=== PATIENT | male | born 1995 | race Caucasian/White ===

== ENCOUNTER → 2016-06-06 | Outpatient (CLI) | payer OTHER ==
[~2016-06-06] MED LIST: LISD70CA PO; RISP1TAB68 PO
[2016-06-06 10:59] LABS: CHOLESTEROL/HDL RATIO 2.5
== END | disposition home or self-care (01) ==
LOC: C.LAB 08:57
PROVIDERS: ATTEND Nurse Practitioner Psychiatric/Mental Health
DX: F90.2 Attention-deficit hyperactivity disorder, combined type (principal); F34.9 Persistent mood [affective] disorder, unspecified; Z51.81 Encounter for therapeutic drug level monitoring; Z79.899 Other long term (current) drug therapy

== ENCOUNTER 2017-06-01 14:35 | Inpatient (IN) | payer OTHER ==
[~2017-06-01] VITALS: Ht 167.6 cm; Wt 67.0 kg
[2017-06-01] MEDS ORDERED: GUAN1TAB26 PO (15:14)
[2017-06-01 15:44] LABS: HEMATOCRIT 46.2 % (42-52); HEMOGLOBIN 15.7 g/dL (14.0-18.0); MEAN CELL VOLUME 83.8 fL (80-100); MEAN CORPUSCULAR HEMOGLOBIN 28.5 pg (25-34); MEAN PLATELET VOLUME 10.1 fL (7.4-10.4); PLATELET COUNT 223 K/uL (130-400); RED CELL DISTRIBUTION WIDTH SD 39.2 fL (36.4-46.3); WHITE BLOOD COUNT 8.56 K/uL (4.8-10.8)
[2017-06-01 16:03] LABS: ALBUMIN 4.7 gm/dl (3.4-5.0); ALT/SGPT 24 U/L (12-78); BLOOD UREA NITROGEN 13 mg/dl (7-18); CALCIUM 9.7 mg/dl (8.5-10.1); CARBON DIOXIDE 26 mmol/L (21-32); CREATININE 0.95 mg/dl (0.60-1.40); GLUCOSE 95 mg/dl (70-99); POTASSIUM 3.7 mmol/L (3.5-5.1); SODIUM 137 mmol/L (136-145)
[2017-06-01 16:14] LABS: ALKALINE PHOSPHATASE 60 U/L (45-117); AST/SGOT 19 U/L (15-37); TOTAL PROTEIN 8.6 gm/dl (6.4-8.2)
[2017-06-01] MEDS ORDERED: hydrOXYzine HCL 25 MG TAB PO PRN ×2 (17:30)
[2017-06-01] MEDS ORDERED: ALUMINUM/MAGNESIUM SUSP 30 ML UDC PO PRN (17:30)
[2017-06-01] MEDS ORDERED: SODIUM CHLORIDE 0.65% NA SOLN 45 ML (OCEAN) PRN (17:30)
[2017-06-01] MEDS ORDERED: MAGNESIUM HYDROXIDE SUSP 30 ML UDC PO PRN (17:30)
[2017-06-01] MEDS ORDERED: ACETAMINOPHEN 325 MG TAB PO PRN (17:30)
[2017-06-01] MEDS ORDERED: BISMUTH SUBSALICYLATE PER ML OMNICELL CHARGE PO PRN (17:30)
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
[2017-06-01] MEDS ORDERED: IBUPROFEN 600 MG TAB PO STA (18:04)
[2017-06-01 19:00] VITALS: O2SAT 100
[2017-06-01 19:38] VITALS: BP 150/90; PULSE 74; TEMP 36.6; Ht 167.6 cm; Wt 67.0 kg
[2017-06-01] MEDS: RISPERIDONE 1 MG TAB PO SCH (21:42)
[2017-06-02 06:51] VITALS: BP_SYST 126; BP_SYST 139; BP_DIAS 70; BP_DIAS 75; PULSE 47; PULSE 94; TEMP 36.4
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
[2017-06-02] MEDS ORDERED: HYDROCORTISONE 1% OINT 30 GM TUBE EXT SCH (11:30)
[2017-06-02] MEDS ORDERED: HYDROCORTISONE 1% OINT 30 GM TUBE EXT ONE (11:45)
[2017-06-02] MEDS: RISPERIDONE 1 MG TAB PO SCH (21:20)
[2017-06-03 06:47] VITALS: BP_SYST 137; BP_SYST 140; BP_DIAS 82; BP_DIAS 83; PULSE 51; PULSE 91; TEMP 36.8
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
--- NOTE | 2017-06-03 15:05 | Psychiatric Progress Notes ---
Progress Note Date of Service Jun 03, 2017. Interval History Brandon Olivares is a 21-year-old male patient of Dr. Daly who has a history of ADHD and unspecified mood disorder who was admitted voluntarily on Jun 01, 2017 at 17:29 after he was brought in by police for suicidality, having threatened his mother with a knife and threatened to cut himself. There is a backup 302 petition. Pt informed of arrest warrant following discharge due to indecent assault. Chief Complaint "I'm feeling a little better now". Subjective Patient was seen & assessed interval progress reviewed with Nursing who passed on suggestion of active CYS reports for multiple incidents. Was reported that patient's mother is unwilling for him to return home after discharge due to safety concerns related to her grandchildren whom she cares for within her home. Arrest warrant was faxed stating patient has active charges for indecent assault requiring him to enter police custody upon discharge. Pt was seen multiple times today as this provider was present when patient received news of the arrest warrant. Pt was seen along with his case advocate, Desiree, and social sciences chair, Jackelyn. Pt's voiced anger upon receiving the news, but was not matched in regard to body language as patient continued to smile and laugh during the conversation. He states he typically bottles up his emotions. During the discussion, the patient was easily distracted by things like his clothing or "junk on my hands". He was able to suppress reported urges to "punch something" and was provided with multiple resources for managing his anger while on the unit to include walking laps, riding the exercise bike, activities, and speaking with staff to help process his feelings. Pt reported to group therapy upon dismissal from the social work office and has been showing decent management of his emotions as the day goes on. Pt was seen later in the afternoon to assess progress since admission and medication changes. He reports he has been taking Risperdal "since I was like 5 " and feels that it has been helpful for him. He is also prescribed medication for ADHD which he states his grandmother will be bringing in when she is able - he is unsure when that will be. Pt states he has been feeling better since news of his warrant this morning and has been distracting himself by watching TV. He denies SI at this time and is agreeable to hold on medication changes until we are able to gain collateral information from his outpatient providers. He states he had difficulty sleeping last evening due to his bed not being comfortable. Appetite remains minimal and he states he has minimal intake throughout the day at baseline. He ate part of breakfast and has kept some food available for him as he gets hungry throughout the day. Review of Systems Psych: denies symptoms other than stated above Constitutional: denied Cardiovascular: denied GI: denied Neurologic: denied Remainder of 10 body systems also reviewed and denied other than noted above. Sleep Information Total Hours of Sleep: 6.75 Meal Information Percent of Breakfast Consumed: 75 Percent of Lunch Consumed: 0 Percent of Dinner Consumed: 100 Mental Status Exam During interview pt is: alert and oriented, cooperative, guarded Appearance: appropriately dressed, disheveled, other (malodorous) Eye contact is: fair Motor behavior is: steady gait & station, no abnormal motor movements Speech: normal in rate, rhythm & volume Affect: blunted Mood is: other ("ok") Thought process: goal directed, concrete Thought content: reality based without delusions Suicidal thought are: denied (threats to cut himself and his mother which lead to admission) Homicidal thoughts are: denied (threats to cut mother leading to admission) Hallucinations: denies auditory, denies visual Cognition: other (appears to be impaired) Intelligence estimated to be: below average Insight: poor Judgement: poor Impression Pt reports anger today due to finding out about arrest warrant. He is able to distract himself to manage his emotions at this time. Collateral information from outpatient providers would be beneficial prior to making medication changes. Pt is known to Dr. Daly who followed him as an outpatient. Due to patient's stability and denial of mood symptoms on the unit, medications have remained unchanged until patient can be further assessed by Dr. Daly or collateral information can be obtained. Pt will need family meeting due to change in disposition and help with discharge planning. [facility] to talk with him and is willing to assist with discharge planning as she is able. Other psychosocial stressors will likely need to be addressed to include recently quitting job and medication and therapy compliance. Plan (1) Suicide gesture - Suicide checks for safety. Encourage the patient to process the stressors that led to his suicide attempt, and schedule a family meeting. Coordinate care with his outpatient providers, and explore poor compliance with outpatient treatment. Encourage group attendance and participation. Work on healthy coping skills and discharge safety plan. Will recommend guns and knives be secured and that he not have access until more stable. - Patient indicated he struggles with appropriate boundaries with females, has multiple GFs, and per police is being investigated for sexual assault. He indicates understanding of the unit rules. (2) Mood disorder 06/02 - Diagnosed with mood disorder NOS. Denying mood symptoms today, but not necessarily a reliable historian, and we will need to get collateral information from family. Coordinate care with Dr. Daly/JEANIE Hodges and other OP providers. He indicates he's been noncompliant with case management and therapy, and we will need to look into this. Continue home dose of risperidone 1mg daily for now. Fasting labs reviewed from 06/06/16, FLP and FG were normal. Is due for annual labs so will order for tomorrow. 06/03 - Continue home medications - Risperdal 1mg daily. Grandmother has been unable to supply home ADHD medication. - Fasting labs this morning are within normal limits, fast glucose of 94 and normal fasting lipid panel. - Continue to encourage participation in group activities and therapy. Allow for individual counseling if required to help process arrest warrant and stressors causing him to act out in these situations. (3) ADHD Guanfacine ER is nonformulary, so family will need to bring his medication in. 06/03 - Reported grandmother has not supplied medication. (4) h/o mrsa 06/02 - [facility]PR for h/o MRSA +, check nasal swab, coordinate with infection control. 06/03 - Reported negative MRSA nasal swab, suggested retest in 1 week if patient remains on the unit. (5) Rash Denies insect bite, injury, itchiness, but bothered by dryness. Hydrocortisone ointment bid, monitor Discharge / Aftercare Planning Therapist: Name: None Evaporator: Name: Desiree Gallardo , email: [email or web address] Visit Code E&M Code: 70178 Inventory Assets Strengths: Supportive family, has OP psychiatrist Needs: Education about illness, coping skills Risk Factors Assessment Male: Yes : Yes /single/: Yes Higher / Fall in social status: No Health problems: No Mental Health Diagnoses: Yes Substance use disorders: No Previous attempt: Yes Previous psychiatric stay: No Hopelessness: No Smoker: No Protective Factors Assessment Scientologist beliefs: No : No Responsible for young children: No Employed: No Stable relationships: No Supportive family: Yes Data Vital Signs Last 24 Hrs: Date Time Temp Pulse Resp B/P (MAP) Pulse Ox O2 Delivery O2 Flow Rate FiO2 06/03/17 06:47 36.8 51 20 137/83 91 140/82 Meds Administered Last 24 Hrs: Meds Administered (Past 24Hrs) Medications (Trade) Dose Ordered Sig/Yobani Route Start Time Stop Time Status Last Admin Dose Admin Risperidone (Risperdal Tab) 1 mg HS PO 06/01/17 21:00 07/01/17 20:59 06/02/17 21:20 1 MG Ibuprofen (Motrin Tab) 600 mg NOW STAT PO 06/01/17 18:04 06/01/17 18:05 DC 06/01/17 18:08 600 MG Hydrocortisone (Hydrocortisone 1% Oint) 1 appln 1145 ONCE EXT 06/02/17 11:45 06/02/17 11:46 DC 06/02/17 12:02 1 APPLN Lab Results Last 24 Hrs: Last 24 Hours Test 06/03/17 07:54 Fasting Glucose 94 mg/dl Triglycerides Level 46 mg/dl Cholesterol Level 158 mg/dl HDL Cholesterol 57 mg/dl LDL Cholesterol, Calculated 92 mg/dl VLDL Cholesterol, Calculated 9 mg/dl Cholesterol/HDL Ratio 2.8 Problem Qualifiers (1) Suicide gesture: Encounter type: initial encounter Qualified Codes: X83.8XXA - Intentional self-harm by other specified means, initial encounter
[2017-06-03] MEDS: RISPERIDONE 1 MG TAB PO SCH (21:14)
[2017-06-03] MEDS: GUANFACINE PO SCH (21:15)
[2017-06-04 06:46] VITALS: BP_SYST 115; BP_SYST 129; BP_DIAS 66; BP_DIAS 90; PULSE 50; PULSE 96; TEMP 36.5
--- NOTE | 2017-06-04 13:33 | Psychiatric Progress Notes ---
Progress Note Date of Service Jun 04, 2017. Interval History Brandon Olivares is a 21-year-old male patient of Dr. Daly who has a history of ADHD and unspecified mood disorder who was admitted voluntarily on Jun 01, 2017 at 17:29 after he was brought in by police for suicidality, having threatened his mother with a knife and threatened to cut himself. There is a backup 302 petition. Pt informed of arrest warrant following discharge due to indecent assault. Chief Complaint "I'm ok". Subjective Patient was seen & assessed interval progress reviewed with Treatment Team. Staff reports patient is receiving charges for indecent assault, but police are "working on other charges". Length of stay determined to be 2-3 days and police and patient's case reviewer will be notified of likely discharge on Wednesday. Pt was seen today to assess progress since admission. Pt states He is doing well and has been thinking about the charges against him. He feels that the proceedings will go well. We discussed taking time during this hospitalization to plan for each potential outcome. Discussed thoughts and actions he expects from himself in things go better, worse, or the same as expected. Pt plans to continue to consider this during the remainder of his stay. He also reports he had a chance to talk with a staff member last evening about his alcohol use and states he feels that this admission will be useful to encourage him not to go back to alcohol use once he is released. Pt requests that someone call his case reviewer about his discharge and it was suggested that he take the opportunity to reach out to her as this would be an important part of being compliant with communication after discharge. Pt reports "trouble " sleeping last evening as it took longer than usual for him to get tired. He denies SI/HI, A/V hallucinations, and other psychosis. Review of Systems Psych: denies symptoms other than stated above Constitutional: denied Cardiovascular: denied GI: denied Neurologic: denied Remainder of 10 body systems also reviewed and denied other than noted above. Sleep Information Total Hours of Sleep: 6.00 Meal Information Percent of Breakfast Consumed: 80 Percent of Lunch Consumed: 0 Percent of Dinner Consumed: 100 Mental Status Exam During interview pt is: alert and oriented, cooperative Appearance: appropriately dressed, disheveled Eye contact is: good Motor behavior is: steady gait & station, no abnormal motor movements Speech: normal in rate, rhythm & volume Affect: euthymic Mood is: other ("good") Thought process: goal directed, concrete Thought content: reality based without delusions Suicidal thought are: denied (previous threats to cut himself) Homicidal thoughts are: denied (threats to cut mother previously) Hallucinations: denies auditory, denies visual Cognition: other (appears to be impaired, unsure of actual IQ level with testing) Intelligence estimated to be: below average Insight: poor Judgement: poor Impression Pt continue to process news of arrest warrant and is beginning to consider possible outcomes from his hearing. He was encouraged to spend some time considering his feelings toward potentially outcomes that may be better than he expects or worse than he expects. He is also planning to discontinue alcohol use upon discharge as he has had time to reflect on its effect thus far on his life choices. Pt was able to receive his ADHD medications from his grandmother as they are non-formulary. He feels better now that he is on both the guanfacine and risperidone. No medication changes necessary at this time as patient feels he is doing better. Will continue to monitor. Plan (1) Suicide gesture - Suicide checks for safety. Encourage the patient to process the stressors that led to his suicide attempt, and schedule a family meeting. Coordinate care with his outpatient providers, and explore poor compliance with outpatient treatment. Encourage group attendance and participation. Work on healthy coping skills and discharge safety plan. Will recommend guns and knives be secured and that he not have access until more stable. - Patient indicated he struggles with appropriate boundaries with females, has multiple GFs, and per police is being investigated for sexual assault. He indicates understanding of the unit rules. (2) Mood disorder 06/02 - Diagnosed with mood disorder NOS. Denying mood symptoms today, but not necessarily a reliable historian, and we will need to get collateral information from family. Coordinate care with Dr. Daly/JEANIE Hodges and other OP providers. He indicates he's been noncompliant with case management and therapy, and we will need to look into this. Continue home dose of risperidone 1mg daily for now. Fasting labs reviewed from 06/06/16, FLP and FG were normal. Is due for annual labs so will order for tomorrow. 06/03 - Continue home medications - Risperdal 1mg daily. Grandmother has been unable to supply home ADHD medication. - Fasting labs this morning are within normal limits, fast glucose of 94 and normal fasting lipid panel. - Continue to encourage participation in group activities and therapy. Allow for individual counseling if required to help process arrest warrant and stressors causing him to act out in these situations. 06/04 - Continue Risperdal 1mg daily and guanfacine home dosing as brought in by grandmother. Improving with re-start of both medications. - Continue to encourage group participation. Was encouraged to spend some time processing potential outcomes of his court hearing to allow him to be prepared for results better/worse than expected. - Will continue to discuss recent desire to abstain from alcohol after discharge as he would greatly benefit from this decision. (3) ADHD Guanfacine ER is nonformulary, so family will need to bring his medication in. 06/03 - Reported grandmother has not supplied medication. (4) h/o mrsa 06/02 - MNPR for h/o MRSA +, check nasal swab, coordinate with infection control. 06/03 - Reported negative MRSA nasal swab, suggested retest in 1 week if patient remains on the unit. (5) Rash Denies insect bite, injury, itchiness, but bothered by dryness. Hydrocortisone ointment bid, monitor Discharge / Aftercare Planning Psychiatrist: Name: [facility] Therapist: Name: Amanda Inside Sales Associate: Name: Desiree Gallardo , email: [email or web address] Visit Code E&M Code: 88273 Inventory Assets Strengths: Supportive family, has OP psychiatrist Needs: Education about illness, coping skills Risk Factors Assessment Male: Yes : Yes /single/: Yes Higher / Fall in social status: No Health problems: No Mental Health Diagnoses: Yes Substance use disorders: No Previous attempt: Yes Previous psychiatric stay: No Hopelessness: No Smoker: No Protective Factors Assessment Quaker beliefs: No : No Responsible for young children: No Employed: No Stable relationships: No Supportive family: Yes Data Vital Signs Last 24 Hrs: Date Time Temp Pulse Resp B/P (MAP) Pulse Ox O2 Delivery O2 Flow Rate FiO2 06/04/17 06:46 36.5 50 16 115/66 96 129/90 Meds Administered Last 24 Hrs: Meds Administered (Past 24Hrs) Medications (Trade) Dose Ordered Sig/Yobani Route Start Time Stop Time Status Last Admin Dose Admin Non-Formulary Medication (Non-Formulary Patient'S Own Med) 1 ea HS PO 06/03/17 22:00 07/03/17 21:59 06/03/17 21:15 1 EA Problem Qualifiers (1) Suicide gesture: Encounter type: initial encounter Qualified Codes: X83.8XXA - Intentional self-harm by other specified means, initial encounter
--- NOTE | 2017-06-04 14:36 | Psych Management Progress Note ---
Psychiatry Miscellaneous Date of Service: Jun 04, 2017. patient seen, MS assessed. Participated in treatment team. assisted outpatient of [facility] in past ages [age]. He voiced good understanding of the reason he was hospitalized and the reasons he cannot return home to mom's. He understands his legal predicament (arrest warrant upon discharge).
[2017-06-04] MEDS: RISPERIDONE 1 MG TAB PO SCH (21:13)
[2017-06-04] MEDS: GUANFACINE PO SCH (21:14)
[2017-06-05 06:57] VITALS: BP_SYST 105; BP_SYST 95; BP_DIAS 62; BP_DIAS 64; PULSE 57; PULSE 92; TEMP 36.4
--- NOTE | 2017-06-05 10:31 | Psychiatric Progress Notes ---
Progress Note Date of Service Jun 05, 2017. Interval History Brandon Olivares is a 21-year-old male patient of Dr. Daly who has a history of ADHD and unspecified mood disorder who was admitted voluntarily on Jun 01, 2017 at 17:29 after he was brought in by police for suicidality, having threatened his mother with a knife and threatened to cut himself. There is a backup 302 petition. Pt informed of arrest warrant following discharge due to indecent assault. Chief Complaint "I'm not even thinking about Wednesday". Subjective Patient was seen & assessed interval progress reviewed with Nursing. Staff reports patient has had borderline inappropriate behavior being drawn to a particular female patient on the unit. He appeared to be receptive when spoken to about this behavior. Staff plans to continue to monitor these interactions. Was reported patient will be picked up by police at 11:00 on 06/07, but patient is not to be informed of time of departure. Pt was seen today along with weekend covering psychiatrist, Dr. Agrawal. Pt states he is doing well and his mood is a 9/10. He reports "now that I have both of my meds, I'm prefect and good to roll." He states he spoke with his mother last evening about his charges and she appeared to be saddened, but supportive and wanting him to get appropriate help. He states he did not call Desiree, his cyanide case hardener yesterday as he had planned. Some time was spent discussing the patient's upcoming hearing and his thoughts and anxieties about his discharge. He states he has been distracting himself with the television and conversations so as not to think about things. Safety planning was discussed and he states he frequently talks with friends and or "goes to the diaz" when he is upset at home. Pt was encouraged to consider distraction and mindfulness techniques that he could practice here on the unit when he feels overwhelmed. He denies SI/HI today and feels that he is doing well. Review of Systems Psych: denies symptoms other than stated above Constitutional: denied Cardiovascular: denied GI: denied Neurologic: denied Remainder of 10 body systems also reviewed and denied other than noted above. Sleep Information Total Hours of Sleep: 8.25 Meal Information Percent of Breakfast Consumed: 60 Percent of Lunch Consumed: 0 Percent of Dinner Consumed: 100 Mental Status Exam During interview pt is: alert and oriented, cooperative Appearance: appropriately dressed, appropriately groomed Eye contact is: good Motor behavior is: no abnormal motor movements Speech: normal in rate, rhythm & volume Affect: euthymic Mood is: other ("perfect") Thought process: goal directed, clear, coherent, concrete Thought content: reality based without delusions Suicidal thought are: denied (threats to cut himself leading to admission) Homicidal thoughts are: denied (previous threats to cut mother) Hallucinations: denies auditory, denies visual Cognition: language grossly intact, other (reports of lower cognitive functioning, unknown IQ) Intelligence estimated to be: below average Insight: impaired Judgement: impaired Impression Pt's mood remains good as he continues to distract himself from impending charges for indecent assault with involvement of a minor. He was encouraged to focus on safety planning and utilizing distraction and mindfulness techniques for situations in which he feels angry or overwhelmed. Tolerating medications which continue to be effective for mood and attention. No medication changes seem necessary. Pt to be discharged to police custody at 11:00 on Wednesday, he is not to be told time of departure. Plan (1) Suicide gesture - Suicide checks for safety. Encourage the patient to process the stressors that led to his suicide attempt, and schedule a family meeting. Coordinate care with his outpatient providers, and explore poor compliance with outpatient treatment. Encourage group attendance and participation. Work on healthy coping skills and discharge safety plan. Will recommend guns and knives be secured and that he not have access until more stable. - Patient indicated he struggles with appropriate boundaries with females, has multiple GFs, and per police is being investigated for sexual assault. He indicates understanding of the unit rules. (2) Mood disorder 06/02 - Diagnosed with mood disorder NOS. Denying mood symptoms today, but not necessarily a reliable historian, and we will need to get collateral information from family. Coordinate care with Dr. Daly/JEANIE Hodges and other OP providers. He indicates he's been noncompliant with case management and therapy, and we will need to look into this. Continue home dose of risperidone 1mg daily for now. Fasting labs reviewed from 06/06/16, FLP and FG were normal. Is due for annual labs so will order for tomorrow. 06/03 - Continue home medications - Risperdal 1mg daily. Grandmother has been unable to supply home ADHD medication. - Fasting labs this morning are within normal limits, fast glucose of 94 and normal fasting lipid panel. - Continue to encourage participation in group activities and therapy. Allow for individual counseling if required to help process arrest warrant and stressors causing him to act out in these situations. 06/04 - Continue Risperdal 1mg daily and guanfacine home dosing as brought in by grandmother. Improving with re-start of both medications. - Continue to encourage group participation. Was encouraged to spend some time processing potential outcomes of his court hearing to allow him to be prepared for results better/worse than expected. - Will continue to discuss recent desire to abstain from alcohol after discharge as he would greatly benefit from this decision. 06/05 - Continue current dosing of Risperdal 1mg and home dose of guanfacine. Tolerating and responding to both medications appropriately. - Continue group participation with focus on plans to control anxiety and anger. Encouraged to practice mindfulness techniques to have available for his use. (3) ADHD Guanfacine ER is nonformulary, so family will need to bring his medication in. 06/03 - Reported grandmother has not supplied medication. (4) h/o mrsa 06/02 - [facility] for h/o MRSA +, check nasal swab, coordinate with infection control. 06/03 - Reported negative MRSA nasal swab, suggested retest in 1 week if patient remains on the unit. (5) Rash Denies insect bite, injury, itchiness, but bothered by dryness. Hydrocortisone ointment bid, monitor Discharge / Aftercare Planning Psychiatrist: Name: Carmen Benavidez [facility] Date of Appointment: Jun 17, 2017 Time of Appointment: 10:00 AM Appointment Notes: call and cancel if needed Therapist: Name: None Principal Secretary: Name: Desiree Gallardo , email: Visit Code E&M Code: 54404 Inventory Assets Strengths: Supportive family, has OP psychiatrist Needs: Education about illness, coping skills Risk Factors Assessment Male: Yes : Yes /single/: Yes Higher / Fall in social status: No Health problems: No Mental Health Diagnoses: Yes Substance use disorders: No Previous attempt: Yes Previous psychiatric stay: No Hopelessness: No Smoker: No Protective Factors Assessment Buddhism beliefs: No : No Responsible for young children: No Employed: No Stable relationships: No Supportive family: Yes Data Vital Signs Last 24 Hrs: Date Time Temp Pulse Resp B/P (MAP) Pulse Ox O2 Delivery O2 Flow Rate FiO2 06/05/17 06:57 36.4 57 16 105/64 92 95/62 Meds Administered Last 24 Hrs: Meds Administered (Past 24Hrs) Medications (Trade) Dose Ordered Sig/Yobani Route Start Time Stop Time Status Last Admin Dose Admin Non-Formulary Medication (Non-Formulary Patient'S Own Med) 1 ea HS PO 06/03/17 22:00 07/03/17 21:59 06/04/17 21:14 1 EA Problem Qualifiers (1) Suicide gesture: Encounter type: initial encounter Qualified Codes: X83.8XXA - Intentional self-harm by other specified means, initial encounter
--- NOTE | 2017-06-05 11:10 | Medical Student: BHU Only ---
Psychiatric Progress Note IDENTIFYING DATA: Brandon Olivares is a 21yo male patient of Dr. Daly. He has a history of ADHD and mood disorder NOS who was admitted on a 201 voluntary commitment (with 302 petition) on Jun 01, 2017 at 17:29 after he was brought in by police for suicidality. He threatened his mother with a knife and threatened to cut himself. CHIEF COMPLAINT: "trouble falling asleep" SUBJECTIVE: Brandon was seen and assessed today, and progress was reviewed with the treatment team. Brandon slept about 8-9hrs, but had some trouble falling asleep. He has been eating all his meals, and attending groups; he is an active participant in group and enjoys the interaction with his peers on the unit. Brnadon reports that he enjoyed his visit yesterday evening with his Grandmother. He states that he has a good relationship with his grandmother and he was "happy to see her." Brandon reports that his mood is a 6-7 out of 10; he states "I want to be happy, I want to be sad, but I'm just in between." He reports that his energy level has been "good." He had a headache this morning that resolved with Tylenol. He says that his "rash" on his torso has improved with the hydrocortisone cream. Brandon denies SI/HI today. ROS: 10 systems reviewed and negative, except for an erythematous and raised patch of skin on his left torso. MSE: Appearance is that of a moderately groomed, slightly disheveled casually dressed male who appears his stated age. The patient is cooperative with the interview. Eye contact is: good Motor behavior is: no abnormal motor movements Speech: normal in rate, rhythm & volume Mood is: "6 to 7 out of 10" Thought process: goal directed, concrete Thought content: reality based without delusions Suicidal thought are: denied Homicidal thoughts are: denied Hallucinations: denies auditory and visual Cognition: language and memory grossly intact Intelligence estimated to be: consistent with education level and intellectual disability Insight: limited Judgement: poor Vitals past 24hrs: Date Time Temp Pulse Resp B/P (MAP) Pulse Ox O2 Delivery O2 Flow Rate FiO2 06/05/17 06:57 36.4 57 16 105/64 92 95/62 ASSESSMENT: Brandon Olivares is a 21yo male with a history of ADHD and mood disorder NOS who was admitted on a 201 voluntary commitment (with 302 petition) after he was brought in by police for suicidality. He threatened his mother with a knife and threatened to cut himself. He denies any persistent mood symptoms and indicates that he became overwhelmed with the stress (due to an on-going police investigation and his mother discovering this) and therefore, acted in a threatening manner towards himself and mother. 06/04 Brandon's mood has been stable while on the unit. While his mood disorder is unclear (mood disorder NOS), he appears to euthymic at the current time. He is aware that he is facing a criminal investigation, but is lacking insight. He denies current SI/HI. With ADHD and impulsive behavior, Jhonny struggles to understand appropriate boundaries. PLAN: 06/03 1. Suicide attempt a.) will need to develop coping skills for dealing with stressors b.) Q15min checks c.) encourage group attendance and participation d.) develop safety plan for dealing with suicidal ideation 2. Mood disorder NOS a.) risperidone 1MG PO QHS 3. ADHD a.) guanfacine ER 4MG PO QHS 4. Medication Monitoring: a.) atypical antipsychotics (risperidone)- FBS and lipids. 06/04 1. Suicide attempt a.) continue to focus on coping skills for dealing with stressors b.) Q15min checks c.) encourage group attendance and participation d.) review safety plan for dealing with SI/HI 2. Mood disorder NOS a.) risperidone 1MG PO QHS 3. ADHD a.) guanfacine ER 4MG PO QHS 4. Discharge plan a.) d/c planning (including follow-up outpatient treatment) is dependent on police investigation. Date of Service: Jun 04, 2017.
[2017-06-05] MEDS: RISPERIDONE 1 MG TAB PO SCH (21:23)
[2017-06-05] MEDS: GUANFACINE PO SCH (21:23)
[2017-06-06 07:04] VITALS: BP_SYST 106; BP_SYST 117; BP_DIAS 66; BP_DIAS 71; PULSE 59; PULSE 93; TEMP 36.5
--- NOTE | 2017-06-06 14:12 | Psychiatric Progress Notes ---
Progress Note Date of Service Jun 06, 2017. Interval History Brandon Olivares is a 21-year-old male patient of Dr. Daly who has a history of ADHD and unspecified mood disorder who was admitted voluntarily on Jun 01, 2017 at 17:29 after he was brought in by police for suicidality, having threatened his mother with a knife and threatened to cut himself. There is a backup 302 petition. Pt informed of arrest warrant following discharge due to indecent assault. Chief Complaint " I still don't know if I am going to care home or not". Subjective Patient was seen & assessed interval progress reviewed with Treatment Team Per nursing he is less intrusive overall. He continues to use denial and not consider the stressors in front of him He is pending discharge tomorrow and will go to care home. Social work walked him through the process at time of discharge as he is taken into police custody. He will be in contact with Agueda Shannon for case management assistance Today on interview he states "I still don't know if I am going to care home or not" and stated people weren't telling him what was going on. IN further discussion he does admit that SW was very plain about the possibilities of care home and what to expect. He states "I just hope that my shoe shanker and caser are able to help me get probation instead" He states it is hard for him to consider care home "because I have never been there" He rates anxiety as a 5, and mood as a 5, and does note he is worried about care home. He has not spoken to therapist here to learn new self-soothing exercises as of yet. He slept well, ate well, and is taking medications and denies SE. He denies SI, intention or plan at this time Review of Systems Denies physical concerns at this time Sleep Information Total Hours of Sleep: 6.50 Meal Information Percent of Breakfast Consumed: 60 Percent of Lunch Consumed: 100 Percent of Dinner Consumed: 100 Mental Status Exam During interview pt is: alert and oriented, cooperative Appearance: appropriately dressed, appropriately groomed Eye contact is: good Motor behavior is: no abnormal motor movements Speech: normal in rate, rhythm & volume Affect: euthymic, anxious Mood is: other ("okay) Thought process: goal directed, clear, coherent, concrete (seems unable to consider future either due to concreteness or due to denial) Thought content: reality based without delusions Suicidal thought are: denied (threats to cut himself leading to admission) Homicidal thoughts are: denied (previous threats to cut mother) Hallucinations: denies auditory, denies visual Cognition: language grossly intact, other (reports of lower cognitive functioning, unknown IQ) Intelligence estimated to be: below average Insight: impaired Judgement: impaired Impression Pt's mood remains good as he continues to distract himself from impending charges for indecent assault with involvement of a minor. He was encouraged to focus on safety planning and utilizing distraction and mindfulness techniques for situations in which he feels angry or overwhelmed. Tolerating medications which continue to be effective for mood and attention. No medication changes seem necessary. Pt to be discharged to police custody at 11:00 on Wednesday, he is not to be told time of departure. Plan (1) Suicide gesture - Suicide checks for safety. Encourage the patient to process the stressors that led to his suicide attempt, and schedule a family meeting. Coordinate care with his outpatient providers, and explore poor compliance with outpatient treatment. Encourage group attendance and participation. Work on healthy coping skills and discharge safety plan. Will recommend guns and knives be secured and that he not have access until more stable. - Patient indicated he struggles with appropriate boundaries with females, has multiple GFs, and per police is being investigated for sexual assault. He indicates understanding of the unit rules. (2) Mood disorder 06/02 - Diagnosed with mood disorder NOS. Denying mood symptoms today, but not necessarily a reliable historian, and we will need to get collateral information from family. Coordinate care with Dr. Daly/JEANIE Hodges and other OP providers. He indicates he's been noncompliant with case management and therapy, and we will need to look into this. Continue home dose of risperidone 1mg daily for now. Fasting labs reviewed from 06/06/16, FLP and FG were normal. Is due for annual labs so will order for tomorrow. 06/03 - Continue home medications - Risperdal 1mg daily. Grandmother has been unable to supply home ADHD medication. - Fasting labs this morning are within normal limits, fast glucose of 94 and normal fasting lipid panel. - Continue to encourage participation in group activities and therapy. Allow for individual counseling if required to help process arrest warrant and stressors causing him to act out in these situations. 06/04 - Continue Risperdal 1mg daily and guanfacine home dosing as brought in by grandmother. Improving with re-start of both medications. - Continue to encourage group participation. Was encouraged to spend some time processing potential outcomes of his court hearing to allow him to be prepared for results better/worse than expected. - Will continue to discuss recent desire to abstain from alcohol after discharge as he would greatly benefit from this decision. 06/05 and 06/06 - Continue current dosing of Risperdal 1mg and home dose of guanfacine. Tolerating and responding to both medications appropriately. - Continue group participation with focus on plans to control anxiety and anger. Encouraged to practice mindfulness techniques to have available for his use. (3) ADHD Guanfacine ER is nonformulary, so family will need to bring his medication in. 06/03 - Reported grandmother has not supplied medication. (4) h/o mrsa 06/02 - [facility] for h/o MRSA +, check nasal swab, coordinate with infection control. 06/03 - Reported negative MRSA nasal swab, suggested retest in 1 week if patient remains on the unit. (5) Rash Denies insect bite, injury, itchiness, but bothered by dryness. Hydrocortisone ointment bid, monitor Discharge / Aftercare Planning Psychiatrist: Name: Carmen Benavidez [employer] Date of Appointment: Jun 17, 2017 Time of Appointment: 10:00 AM Appointment Notes: call and cancel if needed Therapist: Name: None Therapeutic Support Staff: Name: Desiree Gallardo , email: Visit Code E&M Code: 84828 Inventory Assets Strengths: Supportive family, has OP psychiatrist Needs: Education about illness, coping skills Risk Factors Assessment Male: Yes : Yes /single/: Yes Higher / Fall in social status: No Health problems: No Mental Health Diagnoses: Yes Substance use disorders: No Previous attempt: Yes Previous psychiatric stay: No Hopelessness: No Smoker: No Protective Factors Assessment Jewish beliefs: No : No Responsible for young children: No Employed: No Stable relationships: No Supportive family: Yes Data Vital Signs Last 24 Hrs: Date Time Temp Pulse Resp B/P (MAP) Pulse Ox O2 Delivery O2 Flow Rate FiO2 06/06/17 07:04 36.5 59 16 117/71 93 106/66 Meds Administered Last 24 Hrs: Current Inpatient Medications Medications (Trade) Dose Ordered Sig/Yobani Route Start Time Stop Time Status Last Admin Dose Admin Acetaminophen (Tylenol Tab) 650 mg Q4H PRN PO 06/01/17 17:30 07/01/17 17:29 06/04/17 07:51 650 MG Bismuth Subsalicylate (Kaopectate Liqd) 15 ml PRN PRN PO 06/01/17 17:30 07/01/17 17:29 Al Hydroxide/Mg Hydroxide (Maalox Susp) 30 ml Q4H PRN PO 06/01/17 17:30 07/01/17 17:29 Magnesium Hydroxide (Milk Of Magnesia Susp) 30 ml DAILY PRN PO 06/01/17 17:30 07/01/17 17:29 Sodium Chloride ([place]al [place]) PRN PRN NA 06/01/17 17:30 07/01/17 17:29 Hydroxyzine HCl (Vistaril Tab) 50 mg HSZ PRN PO 06/01/17 17:30 07/01/17 17:29 Hydroxyzine HCl (Vistaril Tab) 25 mg Q4H PRN PO 06/01/17 17:30 07/01/17 17:29 Risperidone (Risperdal Tab) 1 mg HS PO 06/01/17 21:00 07/01/17 20:59 06/05/17 21:23 1 MG Hydrocortisone (Hydrocortisone 1% Oint) 1 appln BETWEENUNITS EXT 06/02/17 11:30 07/02/17 11:29 Non-Formulary Medication (Non-Formulary Patient'S Own Med) 1 ea HS PO 06/03/17 22:00 07/03/17 21:59 06/05/17 21:23 1 EA Problem Qualifiers (1) Suicide gesture: Encounter type: initial encounter Qualified Codes: X83.8XXA - Intentional self-harm by other specified means, initial encounter
[2017-06-06] MEDS: GUANFACINE PO SCH (21:36)
[2017-06-06] MEDS: RISPERIDONE 1 MG TAB PO SCH (21:36)
[2017-06-07 06:57] VITALS: BP_SYST 101; BP_SYST 92; BP_DIAS 59; BP_DIAS 62; PULSE 63; PULSE 85; TEMP 36.4
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
== END 2017-06-07 10:55 | disposition home or self-care (01) | DRG 885 ==
LOC: C.EDB 14:36 → C.MHU 17:29 → ENRESERV 18:49
PROVIDERS: ADMIT Psychiatry & Neurology Psychiatry; ATTEND Psychiatry & Neurology Psychiatry
DX: F39 Unspecified mood [affective] disorder (principal); R45.851 Suicidal ideations; F90.9 Attention-deficit hyperactivity disorder, unspecified type; Z86.14 Personal history of Methicillin resistant Staphylococcus aureus infection; R21 Rash and other nonspecific skin eruption; Z87.891 Personal history of nicotine dependence